=== PATIENT | male | born 1975 | race Caucasian/White ===

== ENCOUNTER → 2024-08-11 07:15 | Outpatient (REF) | payer BC, SELFPAY ==
[2024-08-11 07:59] LABS: Hematocrit 43.6 % (39.0-52.0); Hemoglobin 15.8 g/dL (13.0-18.0); Mean Corp Hgb Conc. 36.2 g/dL (33.0-37.0); Mean Corpuscular Hgb 29.8 pg (27.0-31.0); Mean Corpuscular Volume 82.1 fL (80.0-94.0); Mean Platelet Volume 10.3 fL (7.4-10.4); Platelet Count 204 10^3/uL (130-400); Red Blood Cell Count 5.31 10^6/uL (4.70-6.10); Red Cell Dist. Width 11.9 % (11.5-14.5); White Blood Cell Count 5.6 10^3/uL (4.8-10.8)
[2024-08-11 08:20] LABS: ALT (SGPT) 39 U/L (0-50); AST (SGOT) 27 U/L (17-59); Albumin 4.5 g/dl (3.5-5.0); Alkaline Phosphatase 52 U/L (38-126); Blood Urea Nitrogen 15 mg/dl (9-20); Calcium 9.8 mg/dl (8.4-10.2); Carbon Dioxide 28 mmol/L (22-30); Chloride 102 mmol/L (98-107); Glucose 109 mg/dl (70-99); HDL Cholesterol 34 mg/dl; LDL Cholesterol, Calculated 55 mg/dl; Potassium 4.9 mmol/L (3.5-5.1); Sodium 141 mmol/L (135-145); Total Bilirubin 1.5 mg/dl (0.2-1.3); Total Cholesterol 105 mg/dl (50-199); Triglyceride 84 mg/dl (10-149); Very Low Density Lipoprotein 16 mg/dl (0-30); eGFR > 60.00
[2024-08-11 11:00] LABS: PSA, Total - Screen 1.78 ng/ml (0.0-4.0); TSH 1.37 uIU/ml (0.47-4.68)
== END ==
LOC: REG 07:15
PROVIDERS: ATTENDING PHYSICIAN Family Medicine; REFERRING PHYSICIAN Internal Medicine Cardiovascular Disease
DX: I25.10 Atherosclerotic heart disease of native coronary artery without angina pectoris (principal); E78.2 Mixed hyperlipidemia; G47.33 Obstructive sleep apnea (adult) (pediatric)
CPT/HCPCS: 36415; 80053; 80061; 84443; 85027; G0103

== ENCOUNTER 2024-11-28 23:06 | Emergency (ER) | payer BC, SELFPAY ==
[2024-11-28 23:12] VITALS: BP 113/73
[2024-11-29] MEDS: DUONEB 3 ML INH (01:53)
[2024-11-29 01:56] VITALS: BMI 36.2
--- NOTE | 2024-11-29 02:31 | ED.GENMED ---
History of Present Illness
General
Chief Complaint: Breathing Problem
Source: patient
Exam Limitations: none
Time Seen by Provider: 11/29/24 01:20
Nursing documentation reviewed up to this point in time: agreed with
History of Present Illness
History of Present Illness:
This is a 49-year-old gentleman who has history of CAD, previous MO, hyperlipidemia, PAF who complains of URI symptoms that began November 24. Evaluated by his PCP November 27 and tested positive for influenza A. Multiple family members with similar
symptoms. Initially was feeling mildly improved on the fourth but throughout the day today has had increased chills, increased cough that is much worse with lying down. He admits to generalized aches, chills, fever that is worse in the evening
hours. He has been taking ibuprofen with the last dose around 9 PM tonight.
As symptoms have began 3 days prior to diagnosis of influenza A, Tamiflu was not prescribed.
He is concerned for possible pneumonia; states several family members with similar symptoms have been diagnosed with pneumonia.
He has no history of chronic lung disease. Non-smoker. He denies chest pain, no dizziness nor lightheadedness. No nausea nor vomiting. No weakness. Cough has been nonproductive.
Past History
Past History
ED Past Medical History: CAD, Hypercholesterolemia, MO (2019) and Psychiatric (Anxiety and depression)
ED Past Surgical History: Cardiac (PTCA with stent 2018)
Social History
Tobacco: Non-smoker
Drug: None
Personal:
Living: with family
Employment: Employed
Family History
Family History: CAD
Phy Exam
Physical Exam
Physical Exam:
GENERAL: 49-year-old gentleman appears his stated age, awake and alert, pleasant, appears in no acute distress. Respirations are easy nonlabored. Able to speak in full sentences. Afebrile.
EYE: anicteric
NECK: Supple, nontender, no meningismus, no significant adenopathy.
ENT: Face mask in place. Oral mucosa is moist. No rhinorrhea.
CARDIAC: Regular rate and rhythm. no murmur.
LUNGS: no acute respiratory distress, scant scattered expiratory wheezing bilateral anterior lung del cid.
ABDOMEN: Rotund, soft, nondistended, without focal tenderness
NEUROLOGICAL: Alert and oriented x3, no focal neuro deficits. Gait is steady.
SKIN: Warm and dry, normal color, skin intact. No rash.
MUSCULOSKELETAL: No C/C/E. peripheral pulses are full and equal b/l. No palpable tenderness.
PSYCH: Normal and appropriate interaction.
Scores
Heart Failure Risk
Heart Failure Risk Score: Not Applicable
Course
Orders/Labs/Results
Orders:
Orders
11/28/24 23:20
CXR2 [CR Chest - 2 Views ] Urgent
Comment:
Reason For Exam: Hx current flu, + cough with fever
11/29/24 01:50
Ipratropium/Albuterol Sulfate [Duoneb] 3 ml .ROUTE .STK-MED ONE
11/29/24 01:51
Ipratropium/Albuterol Sulfate [Duoneb] 3 ml INH R NOW STA
Vital Signs
Initial and Last Documented VS:
Initial Vital Signs
Temp Pulse Resp BP Pulse Ox
99.8 F 85 22 113/73 96
11/28/24 23:12 11/28/24 23:12 11/28/24 23:12 11/28/24 23:12 11/28/24 23:12
Last Documented Vital Signs
Temp Pulse Resp BP Pulse Ox
99.8 F 81 18 113/78 97
11/28/24 23:12 11/29/24 02:34 11/29/24 02:34 11/29/24 02:34 11/29/24 02:34
MDM/Problems Addressed
Differential Diagnosis Includes:
Patient is presents with 6-day history of URI symptoms, tested positive for influenza A day and a half ago.
Concern for influenza bronchiolitis, influenza/viral pneumonitis, other consideration is secondary bacterial pneumonia.
Lungs concerning for scattered expiratory wheezing, mild in nature and most noted anteriorly.
Chest x-ray concerning for potential mild focal infiltrate right lower hilar region. This could certainly be viral focal pneumonia in nature. Must also consider secondary bacterial focal pneumonia.
Overall well in appearance. Currently afebrile, no respiratory distress.
Will give DuoNeb nebulizer and plan to reassess after treatment.
Chronic conditions affecting care: CAD and Arrhythmia (Prior history of atrial fibrillation)
*Radiology
Radiology exam reviewed: preliminary read by ED provider (I question small focal infiltrate right lower hilar region. Versus focal atelectasis)
*Pulse Oximetry
Patient hypoxic: no
*Critical Care Note
Total Time (30-74mins, 75-104mins- exclusive of procedures): Not Applicable
Update Note
Update Note:
03:10
Patient feeling markedly improved after nebulizer treatment. Resting comfortably.
Lungs are clear to auscultation.
Will discharge to home with prescription for albuterol inhaler to use 4 times daily as needed for cough, wheezing.
Overall well in appearance, I do not suspect secondary bacterial infectious process.
Recommend continuing with supportive measures, staying well-hydrated, continue ibuprofen versus Tylenol as needed for fever. Rest.
Prompt follow-up with PCP for recheck.
Return precautions discussed.
ED Attending Note
-
Portions of this chart may have been created with voice recognition software.� Occasional wrong word or��sound alike� substitutions may have occurred due to the inherent limitations of voice recognition software.
Discharge Plan
Departure
Patient Disposition: Home (Routine Discharge)
Date of Disposition: 11/29/24
Time of Disposition: 03:09
Patient with high blood pressure during this ER visit?: No
Condition: Good
Discharge Problem:
Influenza A
Instructions: How to Use a Metered Dose Inhaler ED, Flu in adults - Discharge instructions
Prescriptions:
New
albuterol sulfate 90 mcg/actuation aerosol powdr breath activated
2 inh inhalation QIDPRN PRN (Reason: shortness of breath or wheezing) Qty: 1 0RF
No Action
oxymetazoline [Afrin Sinus (oxymetazoline)] 30 SPRAYS/15 ML spray,non-aerosol
2 sprays intranasal BID PRN (Reason: nasal congestion)
atorvastatin 80 MG tablet
80 mg PO QPM Qty: 30 6RF
carvedilol 6.25 MG tablet
6.25 mg PO BID
alprazolam 0.5 MG tablet
0.5 mg PO HS
aspirin 81 MG tablet,chewable
162 mg PO DAILY
isosorbide mononitrate 30 MG tablet extended release 24 hr
30 mg PO DAILY Qty: 90 3RF
Referrals:
Antonio Connor MD [Family Provider] - Call in 1-3 days for appt
Interventions
Interventions:
*Risk Screen - Suicide Last Done: 11/28/24 23:12
*General Assessment Last Done: 11/29/24 01:56
*ED COVID-19 Vaccine History Last Done: 11/29/24 01:56
ED- Cardiac Assessment Last Done: 11/29/24 01:56
ED- Pulmonary Assessment Last Done: 11/29/24 01:56
Discharge Date and Time
Print Language: INDONESIAN
[2024-11-29 02:34] VITALS: BP 113/78
== END 2024-11-29 03:33 | disposition home or self-care (01) ==
LOC: EMR 23:06
PROVIDERS: EMERGENCY PHYSICIAN Emergency Medicine; FAMILY PHYSICIAN Family Medicine
DX: J10.1 Influenza due to other identified influenza virus with other respiratory manifestations (principal); I25.10 Atherosclerotic heart disease of native coronary artery without angina pectoris; E78.00 Pure hypercholesterolemia, unspecified; I48.0 Paroxysmal atrial fibrillation; F41.8 Other specified anxiety disorders; I25.2 Old myocardial infarction; Z82.49 Family history of ischemic heart disease and other diseases of the circulatory system; Z95.5 Presence of coronary angioplasty implant and graft
CPT/HCPCS: 99283; 94640; 71046

== ENCOUNTER → 2025-05-03 06:42 | Outpatient (REF) | payer BC, SELFPAY ==
[2025-05-03 07:21] LABS: Hematocrit 46.1 % (39.0-52.0); Hemoglobin 16.4 g/dL (13.0-18.0); Mean Corp Hgb Conc. 35.6 g/dL (33.0-37.0); Mean Corpuscular Volume 85.7 fL (80.0-94.0); Platelet Count 197 10^3/uL (130-400); Red Cell Dist. Width 12.5 % (11.5-14.5)
[2025-05-03 07:40] LABS: Glycohemoglobin (HgbA1c) 5.4 % (4.0-5.6)
[2025-05-03 07:57] LABS: ALT (SGPT) 65 U/L (0-50); AST (SGOT) 32 U/L (17-59); Albumin 4.6 g/dl (3.5-5.0); Alkaline Phosphatase 61 U/L (38-126); Blood Urea Nitrogen 16 mg/dl (9-20); Calcium 9.4 mg/dl (8.4-10.2); Carbon Dioxide 25 mmol/L (22-30); Chloride 106 mmol/L (98-107); Glucose 97 mg/dl (70-99); HDL Cholesterol 48 mg/dl; LDL Cholesterol, Calculated 76 mg/dl; Potassium 4.3 mmol/L (3.5-5.1); Sodium 138 mmol/L (135-145); Total Protein 7.3 g/dl (6.3-8.2); Very Low Density Lipoprotein 24 mg/dl (0-30); eGFR > 60.00
== END ==
LOC: REG 06:42
PROVIDERS: ATTENDING PHYSICIAN Family Medicine; REFERRING PHYSICIAN Internal Medicine Cardiovascular Disease
DX: E78.2 Mixed hyperlipidemia (principal); I25.10 Atherosclerotic heart disease of native coronary artery without angina pectoris; R73.9 Hyperglycemia, unspecified
CPT/HCPCS: 36415; 80053; 80061; 83036; 85027

== ENCOUNTER → 2025-09-06 11:47 | Outpatient (REF) | payer BC, SELFPAY | LOC: RAD 11:47 | PROVIDERS: ATTENDING PHYSICIAN Family Medicine; REFERRING PHYSICIAN Orthopaedic Surgery | DX: M25.551 Pain in right hip (principal); M54.50 Low back pain, unspecified | CPT/HCPCS: 73502 ==

== ENCOUNTER → 2025-09-08 08:25 | Outpatient (REF) | payer BC, SELFPAY | LOC: MRI 08:25 | PROVIDERS: ATTENDING PHYSICIAN Family Medicine; REFERRING PHYSICIAN Orthopaedic Surgery | DX: M25.551 Pain in right hip (principal); M54.50 Low back pain, unspecified | CPT/HCPCS: 73721 ==